=== PATIENT | male | born 1965 | race Caucasian/White ===

== ENCOUNTER 2016-11-27 05:39 | Emergency (ER) | payer SELFPAY ==
[2016-11-27] MEDS ORDERED: NS 0.9% 1000 ML* 1,000 ML IV ONE (07:07)
[2016-11-27 07:30] LABS: Hematocrit 43 % (42-52); Mean Corpuscular HGB Conc 35 g/dl (31-36); Mean Corpuscular Hemoglobin 31 pg (27-31); Mean Corpuscular Volume 88 fL (80-94); Mean Platelet Volume 9 um3 (7.4-10.4); Red Blood Count 4.91 10^6/ul (4.0-5.4); Red Cell Distribution Width 14 % (10.5-15); White Blood Count 6.9 10^3/ul (3.5-10.8)
[2016-11-27 07:41] LABS: BUN/Creatinine Ratio 22.2 (8-20); C Reactive Protein 6.38 mg/L (< 5.00); Calcium 9.3 mg/dL (8.6-10.3); EGFR African American 130.3 (>60); EGFR Non-African American 101.3 (>60); Globulin 3.5 g/dL (2-4); Potassium 4.2 mmol/L (3.5-5.0); Total Bilirubin 0.5 mg/dL (0.2-1.0); Total Protein 7.5 g/dL (6.4-8.9)
[2016-11-27 07:50] VITALS: BP 149/77
--- NOTE | 2016-11-27 08:10 | RAD ---
Indication: Right flank pain. CT of the abdomen and pelvis was performed without oral or IV contrast demonstration. Coronal and sagittal reconstructed images were obtained. The lung bases demonstrate no pleural fluid, nodules or masses. Heart is of normal size without evidence of pericardial effusion. Liver is normal in size. No focal lesions or intrahepatic ductal dilatation is noted. The liver may BE decreased in density suggestive of hepatic steatosis. The gallbladder demonstrates no calcified gallstones. No pericholecystic fluid or wall thickening is identified. The common duct is not dilated. The pancreas indicates no mass or pancreatic duct dilatation. The spleen is normal in size. No adrenal masses are noted. No hydronephrosis of either kidney is noted. No hydroureter is noted. No retroperitoneal lymphadenopathy is noted. Aorta and inferior cava are unremarkable. CT of the pelvis demonstrates normal appendix. Colon is filled with stool. No dilated loops of bowel are noted. Diverticulosis without definite evidence of diverticulitis of the sigmoid colon is noted. IMPRESSION: Normal appendix. No evidence of obstructive uropathy is noted. There may BE hepatic steatosis noted.
[2016-11-27 09:00] LABS: Urine Bacteria Absent (Absent); Urine Bilirubin Negative (Negative); Urine Glucose 3+(>=500 mg/dL) (Negative); Urine Nitrite Negative (Negative)
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
== END 2016-11-27 09:22 | disposition home or self-care (01) ==
LOC: ED 05:39
DX: R10.84 Generalized abdominal pain (principal); R21 Rash and other nonspecific skin eruption
CPT/HCPCS: 36415; 74176; 80053; 81003; 81015; 83605; 83690; 85025; 86140; 87086; 99282

== ENCOUNTER 2023-09-13 08:52 | Observation (INO) ==
[~2023-09-13 08:52] MED LIST: Naloxone 0.4 mg VIAL 0.4 mg/ml 1 ml VIAL IV PRN; Ondansetron 4 mg VIAL 2 MG/ML 2 ml VIAL IV PRN; fentaNYL 100 mcg/2 ml 50 MCG/ML VIAL IV PRN
[2023-09-13 09:37] LABS: Rapid COVID-19 Molecular Undetected (Undetected)
[2023-09-13] MEDS ORDERED: ceFAZolin 2 GM in NS PREMIX 2 GM/100 ML BAG IVPB ONE (09:37)
[2023-09-13] MEDS ORDERED: Tranexamic Acid 1 GM/100ML BAG 2,000 MG/200 ML BAG IV ONE (09:37)
[2023-09-13] MEDS ORDERED: Buffered Lidocaine 1% SYRIN 1 ml ONE (09:37)
[2023-09-13] MEDS ORDERED: Dexamethasone IV 4 MG/ML VIAL 1 ml VIAL ONE ×2 (10:14→11:34)
[2023-09-13] MEDS ORDERED: Midazolam 2 mg/2 ml VIAL 1 mg/ml 2 ml VIAL (2 mg) ONE ×3 (10:14→14:26)
[2023-09-13] MEDS ORDERED: Propofol 10 MG/ML 20 ML BTL ONE (10:14)
[2023-09-13] MEDS ORDERED: Ondansetron 4 mg VIAL 2 MG/ML 2 ml VIAL ONE (10:14)
[2023-09-13] MEDS ORDERED: fentaNYL 100 mcg/2 ml 50 MCG/ML VIAL ONE ×3 (10:14→11:34)
[2023-09-13] MEDS ORDERED: Ropivacaine 5 MG/ML 20 ML VIAL 0.5% (100 MG) ONE (11:35)
[2023-09-13] MEDS ORDERED: ROPIVACAINE 5 MG/ML 30 ML BTL (0.5%) ONE (11:50)
[2023-09-13] MEDS ORDERED: Ondansetron 4 mg VIAL 2 MG/ML 2 ml VIAL IV PRN (12:11)
[2023-09-13] MEDS ORDERED: Ondansetron ODT 4 mg TAB 4 MG TAB PO PRN (12:11)
[2023-09-13] MEDS ORDERED: Magnesium Hydroxide LIQ 30 ML UDC PO PRN (12:11)
[2023-09-13] MEDS ORDERED: Morphine 2 MG/ML SYRINGE IV PRN (12:11)
[2023-09-13] MEDS ORDERED: Calcium Carb (TUMS) 500 mg CHEW TAB PO PRN (12:11)
[2023-09-13] MEDS ORDERED: Lactulose 30 ml UDC PO PRN (12:11)
[2023-09-13] MEDS ORDERED: ceFAZolin VIAL VIAL ONE (12:54)
[2023-09-13] MEDS ORDERED: Dexmedetomidine 200 mcg/2 ml 2 ml VIAL (200 mcg) ONE (14:06)
[2023-09-13] MEDS: Lactated Ringers 1000 ml BAG 1,000 ML IV SCH ×2 (16:11→16:53)
[2023-09-13] MEDS: Buffered Lidocaine 1% SYRIN 1 ml INTRADERM ONE (16:11)
[2023-09-13] MEDS: ceFAZolin *3* GM in NS PREMIX 3 GM/100 ML BAG IV SCH ×2 (16:12→20:29)
[2023-09-13] MEDS: Magnesium Hydroxide LIQ 30 ML UDC PO SCH (20:27)
[2023-09-14 06:03] LABS: Hematocrit 32.8 % (38-53); Hemoglobin 11.1 g/dL (13.2-16.3); Mean Platelet Volume 7.9 fL (7.5-11.2); Platelet Count 237 10^3/uL (150-450)
[2023-09-14 06:25] LABS: Calcium 8.5 mg/dL (8.6-10.3); Creatinine, Serum 1.34 mg/dL (0.67-1.17); Potassium 4.7 mmol/L (3.5-5.0); eGFR CKD-EPI 62.2 (>60)
[2023-09-14] MEDS: Vitamin THERAPEUTIC TAB PO SCH (08:07)
[2023-09-14 10:35] VITALS: BP 176/84
== END 2023-09-14 12:24 | disposition home or self-care (01) ==
LOC: INTOOBSV 08:52 → AA 08:52 → SSU 12:11
PROVIDERS: ADMIT Orthopaedic Surgery Adult Reconstructive Orthopaedic Surgery; ATTEND Orthopaedic Surgery Adult Reconstructive Orthopaedic Surgery